=== PATIENT | female | born 1960 | race Caucasian/White ===

== ENCOUNTER 2025-06-15 09:53 | Outpatient (CLI) | payer MEDICARE, SELFPAY ==
--- NOTE | ~2025-06-15 | XR_ITS ---
XR hip RT 2V w AP pelvis 06/15/2025 10:19 INDICATION: Right hip pain PROCEDURE: 3 views right hip including AP pelvis COMPARISON: No prior studies for comparison. FINDINGS: Fracture, dislocation or subluxation is not identified. Sacral foramen are symmetric. The soft tissues appear within normal limits. No foreign bodies are identified. IMPRESSION: 1: NO ACUTE BONE OR JOINT ABNORMALITY IDENTIFIED. Reviewed, dictated and finalized at location O.
== END 2025-06-15 09:54 | disposition home or self-care (01) ==
LOC: MICIMG 10:01
PROVIDERS: PCP Physician Assistant; Visit Provider Physician Assistant
DX: M25.551 Pain in right hip (principal)
CPT/HCPCS: 73502